=== PATIENT | female | born 1960 | race African-American/Black ===

== ENCOUNTER 2017-12-22 19:13 | Observation (INO) | payer OTHER ==
[~2017-12-22] VITALS: Ht 167.6 cm; Wt 82.9 kg
[2017-12-22 20:25] LABS: ALBUMIN 4.1 g/dL (3.2-4.8); CHLORIDE 106 mEq/L (99-109); POTASSIUM 3.3 mEq/L (3.7-5.4); PTT 24.5 SEC (25-37); SODIUM 146 mEq/L (136-147)
[2017-12-22 20:26] LABS: HEMATOCRIT 36.7 % (36.0-46.0); HEMOGLOBIN 12.3 G/DL (11.9-15.5); MCHC 33.5 G/DL (30.0-36.0); MCV 83.6 FL (83-99); PLATELET COUNT 248 K/uL (156-360); RBC DIS.WIDTH-CV 12.9 % (11.8-14.6); RED BLOOD COUNT 4.39 M/uL (3.80-5.20); WHITE BLOOD COUNT 6.8 K/uL (4.1-10.2)
[2017-12-22 20:28] LABS: GLUCOSE 114 mg/dL (70-99); TOTAL PROTEIN 7.1 g/dL (6.4-8.3)
[2017-12-22 20:30] LABS: TOTAL BILIRUBIN 0.2 mg/dL (0.0-1.0)
[2017-12-22 20:31] LABS: ALKALINE PHOSPHATASE 53 IU/L (3-129); CREATININE 1.5 mg/dL (0.6-1.3); GFR ESTIMATE (CALCULATED) 46 mL/min/
[2017-12-22 20:32] LABS: UREA NITROGEN (BUN) 16 mg/dL (9-23)
[2017-12-22 20:33] LABS: AST (GOT) 17 IU/L (2-34)
[2017-12-22 20:34] LABS: ALT (GPT) 13 IU/L (3-49)
[2017-12-22 20:36] LABS: TROP-I INTERPRETATION NEGATIVE; TROPONIN-I 0.03 ng/mL (0.0-0.30)
[2017-12-23] VITALS (7 sets, daily range): BP systolic 124–231; BP diastolic 56–94
[2017-12-23 02:40] LABS: TROP-I INTERPRETATION NEGATIVE; TROPONIN-I 0.05 ng/mL (0.0-0.30)
[2017-12-23] MEDS ORDERED: PERCOCET 10/1 TABLET PO (08:20)
[2017-12-23 09:48] LABS: CHLORIDE 104 MEQ/L (99-109); CREATININE 1.5 MG/DL (0.6-1.3); GFR ESTIMATE (CALCULATED) 46 mL/min/; GLUCOSE 95 mg/dL (70-99); POTASSIUM 3.4 MEQ/L (3.7-5.4); SODIUM 140 MEQ/L (136-147); UREA NITROGEN (BUN) 20 mg/dL (9-23)
[2017-12-23 09:56] LABS: TROP-I INTERPRETATION NEGATIVE; TROPONIN-I 0.03 ng/mL (0.0-0.30)
[2017-12-23] MEDS ORDERED: ASPIRIN EC325 MG PO (10:33)
[2017-12-23] MEDS ORDERED: ERGOCALCIF50000 UNIT PO (11:39)
[2017-12-23] MEDS ORDERED: OXYMORPHONE HC7.5 MG PO (11:39)
[2017-12-23] MEDS ORDERED: CILOSTAZOL100 MG PO (11:40)
[2017-12-23] MEDS ORDERED: PROCARDIA XL60 MG PO (11:40)
[2017-12-23] MEDS ORDERED: ZANTAC150 MG PO (11:40)
[2017-12-23] MEDS ORDERED: ZOCOR20 MG PO (11:40)
[2017-12-23] MEDS ORDERED: LANTUS 10100 UNITS/ SC ×2 (11:41)
[2017-12-23] MEDS ORDERED: PROAIR HFA8.5 GM IH (11:41)
[2017-12-23] MEDS ORDERED: METOPROLOL TART25 MG PO (11:42)
[2017-12-23] MEDS ORDERED: MOTRIN800 MG PO (11:42)
[2017-12-23] MEDS ORDERED: LO-DOSE ASPIRIN81 M1 PO (11:42)
== END 2017-12-23 22:34 | disposition home or self-care (01) ==
LOC: EME 19:13 → EDBD 19:13 → EDOF 22:13 → 4SOUTH 22:13 → ENRESERV 22:14 → 4SOUTH 23:59
PROVIDERS: Emergency Medicine Emergency Medical Services; Internal Medicine; Physician Assistant
DX: T40.2X1A Poisoning by other opioids, accidental (unintentional), initial encounter (principal); G92 Toxic encephalopathy; R94.31 Abnormal electrocardiogram [ECG] [EKG]; D68.9 Coagulation defect, unspecified; E11.9 Type 2 diabetes mellitus without complications; I10 Essential (primary) hypertension; N28.9 Disorder of kidney and ureter, unspecified; E78.5 Hyperlipidemia, unspecified; G89.29 Other chronic pain; M54.9 Dorsalgia, unspecified; K21.9 Gastro-esophageal reflux disease without esophagitis; Z89.429 Acquired absence of other toe(s), unspecified side; Z87.891 Personal history of nicotine dependence; Z79.891 Long term (current) use of opiate analgesic
CPT/HCPCS: 71045; 78582; 80048; 80053; 82948; 84484; 85027; 85379; 85610; 85730; 93005; 93306; 99281; 99285; A9503; G0378; J0360; J1650; J2310; J7030